=== PATIENT | male | born 1970 ===

== ENCOUNTER 2018-10-17 12:15 | Inpatient (IN) | payer MEDICAID ==
[2018-10-17] MEDS ORDERED: Sodium Chloride 0.9% 1,000 ML IV ONE (13:18)
--- NOTE | 2018-10-17 13:33 | C.PDOC ---
History Of Present Illness 48 y/o male, with no known PMHx, presents to the ED complaining of decreased appetite, chest pain, weakness, fever, weight loss, and abdominal pain for the past month. Chest pain is described as sharp. abdominal pain is sharp but waxes and wanes in intensity, and worsens after eating. Otherwise patient denies any vomiting, diarrhea, dysuria, hematuria, back pain, headache, or dizziness. Time Seen by Provider: 10/17/18 13:10 Chief Complaint (Nursing): Chest Pain History Per: Patient History/Exam Limitations: no limitations Onset/Duration Of Symptoms: Days Current Symptoms Are (Timing): Still Present Quality: Sharp Past Medical History Reviewed: Historical Data, Nursing Documentation, Vital Signs Vital Signs: Last Vital Signs Temp 100.9 F H 10/17/18 12:19 Pulse 120 H 10/17/18 12:19 Resp 18 10/17/18 12:19 BP 101/66 10/17/18 12:19 Pulse Ox 95 10/17/18 12:19 - Medical History PMH: No Chronic Diseases Family History: States: No Known Family Hx - Social History Hx Tobacco Use: Yes Hx Alcohol Use: Yes Hx Substance Use: No - Immunization History Hx Tetanus Toxoid Vaccination: No Hx Influenza Vaccination: No Hx Pneumococcal Vaccination: No Review Of Systems Except As Marked, All Systems Reviewed And Found Negative. Constitutional: Positive for: Fever, Weakness, Weight loss Eyes: Negative for: Vision Change Cardiovascular: Positive for: Chest Pain. Negative for: Palpitations Respiratory: Negative for: Cough, Shortness of Breath, Wheezing Gastrointestinal: Positive for: Abdominal Pain, Other (Decreased appetite). Negative for: Vomiting, Diarrhea Genitourinary: Negative for: Dysuria, Hematuria Musculoskeletal: Negative for: Back Pain Neurological: Negative for: Weakness (focal), Numbness Physical Exam - Physical Exam Appears: Non-toxic, No Acute Distress Skin: Normal Color, Warm, Dry Head: Atraumatic, Normacephalic Eye(s): bilateral: Normal Inspection, PERRL, EOMI Oral Mucosa: Moist Neck: Normal ROM Chest: Symmetrical Cardiovascular: Rhythm Regular, No Murmur Respiratory: No Accessory Muscle Use, Rhonchi (at the right base), No Wheezing, Other (No respiratory distress) Gastrointestinal/Abdominal: Soft, Tenderness (diffuse abdominal tenderness), No Guarding, No Rebound Back: No CVA Tenderness, No Vertebral Tenderness Extremity: Bilateral: Atraumatic, Normal Color And Temperature Pulses: Left Dorsalis Pedis: Normal, Right Dorsalis Pedis: Normal Neurological/Psych: Oriented x3, Normal Speech ED Course And Treatment - Laboratory Results Result Diagrams: 10/17/18 13:37 10/17/18 13:37 ECG: Interpreted By Me, Viewed By Me ECG Rhythm: Sinus Rhythm Interpretation Of ECG: normal intervals, normal axis, no ST/T wave abnormalities Rate From EC O2 Sat by Pulse Oximetry: 95 (RA) Pulse Ox Interpretation: Normal - Other Rad CXR X-Ray: Read By Radiologist Interpretation: Accession No. : [id number]. Patient Name / ID : BHAVYA PATEL / [id number]. Exam Date : 10/17/2018 13:33:15 ( Approved ). Study Comment : Sex / Age : M / 48Y. Creator : Stephen Griffin MD. Dictator : Stephen Griffin MD. Icu Staff Nurse : Legal Process Specialist : Stephen Griffin MD. Approver2 : Report Date : 10/17/2018 14:50:13. My Comment : . Date of service: 10/17/2018. HISTORY: SOB. COMPARISON: No prior. TECHNIQUE: Chest PA and lateral. FINDINGS: LUNGS: No active pulmonary disease. PLEURA: No significant pleural effusion identified. No pneumothorax apparent. CARD IOVASCULAR: No aortic atherosclerotic calcification present. Normal cardiac size. No pulmonary vascular congestion. OSSEOUS STRUCTURES: No significant abnormalities. VISUALIZED UPPER ABDOMEN: Normal. OTHER FINDINGS: None. IMPRESSION: No active disease. - CT Scan/US CT Abd/Pelvis Other Rad Studies (CT/US): Read By Radiologist, Radiology Report Reviewed CT/US Interpretation: Accession No. : [id number]. Patient Name / ID : BHAVYA PATEL / [id number]. Exam Date : 10/17/2018 16:04:36 ( Approved ). Study Comment : Sex / Age : M / 48Y. Creator : Kati Capps. Dictator : Stephen Griffin MD. Icu Staff Nurse : Legal Process Specialist : Stephen Griffin MD. Approver2 : Report Date : 10/17/2018 16:19:33. My Comment : . Date of service: 10/17/2018. PROCEDURE: CT Abdomen and Pelvis with contrast. HISTORY: abd. pain. COMPARISON: None. TECHNIQUE: Contrast dose: 100 cc of Visipaque. Radiation dose: Total exam DLP = 290.62 mGy-cm. This CT exam was performed using one or more of the following dose reduction techniques: Automated exposure control, adjustment of the mA and/or kV according to patient size, and/or use of iterative reconstruction technique. FINDINGS: LOWER THORAX: Unremarkable. LIVER: Unremarkable. No gross lesion or ductal dilatation. There is a 19 mm hypodense lesion in the right lobe of the liver. This measures 54 Hounsfield units in density. Follow-up is recommended. GALLBLADDER AND BILE DUCTS: Unremarkable. PANCREAS: Unremarkable. No gross lesion or ductal dilatation. SPLEEN: Unremarkable. ADRENALS: Unremarkable. No mass. KIDNEYS AND URETERS: Unremarkable. No hydronephrosis. No solid mass. VASCULATURE: Unremarkable. No aortic aneurysm. No aortic atherosclerotic calcification or mural plaque present. BOWEL: Unremarkable. No obstruction. No gross mural thickening. APPENDIX: Normal appendix. PERITONEUM: Unremarkable. No free fluid. No free air. LYMPH NODES: Unremarkable. No enlarged lymph nodes. BLADDER: Unremarkable. REPRODUCTIVE: Unremarkable. BONES: No acute fracture. OTHER FINDINGS: None. IMPRESSION: There is a 19 mm hypodense lesion in the right lobe of the liver. This measures 54 Hounsfield units in density. Follow-up is recommended. No acute intra abdominal findings Medical Decision Making Medical Decision Making: Impression: Chest/Abdominal Pain, Weakness, Fever Plan: --EKG --VBG --Labs --Blood and urine cultures --Chest x-ray --IVF hydration --Tylenol 650 mg PO --Awaiting CT Abd/Pelvis with IV contrast 1724- case discussed with hospitalist and will admit to telemetry Disposition Discussed With DrAbdirizak: Alex Gutierrez Doctor Will See Patient In The: Hospital Counseled Patient/Family Regarding: Studies Performed, Diagnosis - Disposition Disposition: HOSPITALIZED Disposition Time: 17:23 Condition: FAIR Forms: [employer] (Yi) - Clinical Impression Clinical Impression: Hyperkalemia, Fever, Abdominal pain - Scribe Statement The provider has reviewed the documentation as recorded by the Hugo Sosa Provider Attestation: All medical record entries made by the Hugo were at my direction and personally dictated by me. I have reviewed the chart and agree that the record accurately reflects my personal performance of the history, physical exam, me dical decision making, and the department course for this patient. I have also personally directed, reviewed, and agree with the discharge instructions and disposition.
[2018-10-17] MEDS ORDERED: Sodium Chloride 0.9% 1,000 ML ONE ×2 (13:41→18:48)
[2018-10-17 13:52] LABS: BASO % 0.1 % (0.0-2.0); BLOOD UREA NITROGEN 18 mg/dL (9-20); EOS # 0.1 K/uL (0.0-0.7); EOS % 0.6 % (0.0-4.0); GFR NON-AFRICAN AMERICAN > 60; HEMOGLOBIN 14.4 g/dL (12.0-18.0); LIPASE 160 U/L (23-300); LYMPH % 17.1 % (20.0-40.0); MEAN CELL VOLUME 81.9 fL (80.0-94.0); MEAN CORPUSCULAR HEMOGLOBIN 27.1 pg (27.0-31.0); MEAN CORPUSCULAR HGB CONC 33.1 g/dL (33.0-37.0); MONO # 1.1 K/uL (0.0-0.8); MONO % 9.9 % (0.0-10.0); NEUT # 8.4 K/uL (1.8-7.0); NEUT % 72.3 % (50.0-75.0); RBC 5.33 Mil/uL (4.40-5.90); RED CELL DISTRIBUTION WIDTH 13.2 % (11.5-14.5); WHITE BLOOD COUNT 11.6 K/uL (4.8-10.8)
[2018-10-17 13:54] LABS: ALB/GLOB RATIO 1.1 (1.0-2.1); ALBUMIN 4.4 g/dL (3.5-5.0); ALT/SGPT 21 U/L (21-72); AST/SGOT 52 U/L (17-59)
[2018-10-17 14:01] LABS: INR 1.3
[2018-10-17 14:08] LABS: VENOUS BLOOD GAS BASE EXCESS -1.5 mmol/L (0.0-2.0); VENOUS BLOOD GAS PCO2 29 mmHg (40-60); VENOUS BLOOD GAS PO2 63 mm/Hg (30-55); VENOUS BLOOD PH 7.47 (7.32-7.43)
[2018-10-17] MEDS ORDERED: Dextrose 50% SYRINGE Inj (50 ml) IV STA (14:42)
[2018-10-17] MEDS ORDERED: Calcium Gluconate 4.65 mEq/10 ml Inj IVP ONE (14:43)
[2018-10-17] MEDS ORDERED: (Novolin R) Insulin Human Regular 100 units/ml vial IV ONE (14:43)
[2018-10-17] MEDS ORDERED: Calcium Gluconate 4.65 mEq/10 ml Inj ONE (14:52)
[2018-10-17] MEDS ORDERED: Dextrose 50% SYRINGE Inj (50 ml) ONE (14:52)
[2018-10-17] MEDS ORDERED: (Novolin R) Insulin Human Regular 100 units/ml vial ONE (14:52)
--- NOTE | 2018-10-17 14:54 | RAD ---
Date of service: 10/17/2018 HISTORY: SOB COMPARISON: No prior. TECHNIQUE: Chest PA and lateral FINDINGS: LUNGS: No active pulmonary disease. PLEURA: No significant pleural effusion identified. No pneumothorax apparent. CARDIOVASCULAR: No aortic atherosclerotic calcification present. Normal cardiac size. No pulmonary vascular congestion. OSSEOUS STRUCTURES: No significant abnormalities. VISUALIZED UPPER ABDOMEN: Normal. OTHER FINDINGS: None. IMPRESSION: No active disease.
[2018-10-17] MEDS ORDERED: Iodixanol 320 MG/ML 100 ML BOTTLE IV ONE (15:07)
--- NOTE | 2018-10-17 16:42 | CT ---
Date of service: 10/17/2018 PROCEDURE: CT Abdomen and Pelvis with contrast HISTORY: abd. pain COMPARISON: None. TECHNIQUE: Contrast dose: 100 cc of Visipaque Radiation dose: Total exam DLP = 290.62 mGy-cm. This CT exam was performed using one or more of the following dose reduction techniques: Automated exposure control, adjustment of the mA and/or kV according to patient size, and/or use of iterative reconstruction technique. FINDINGS: LOWER THORAX: Unremarkable. LIVER: Unremarkable. No gross lesion or ductal dilatation. There is a 19 mm hypodense lesion in the right lobe of the liver. This measures 54 Hounsfield units in density. Follow-up is recommended. GALLBLADDER AND BILE DUCTS: Unremarkable. PANCREAS: Unremarkable. No gross lesion or ductal dilatation. SPLEEN: Unremarkable. ADRENALS: Unremarkable. No mass. KIDNEYS AND URETERS: Unremarkable. No hydronephrosis. No solid mass. VASCULATURE: Unremarkable. No aortic aneurysm. No aortic atherosclerotic calcification or mural plaque present. BOWEL: Unremarkable. No obstruction. No gross mural thickening. APPENDIX: Normal appendix. PERITONEUM: Unremarkable. No free fluid. No free air. LYMPH NODES: Unremarkable. No enlarged lymph nodes. BLADDER: Unremarkable. REPRODUCTIVE: Unremarkable. BONES: No acute fracture. OTHER FINDINGS: None. IMPRESSION: There is a 19 mm hypodense lesion in the right lobe of the liver. This measures 54 Hounsfield units in density. Follow-up is recommended. No acute intra abdominal findings
[2018-10-17] MEDS ORDERED: Sod Polystyrene Sulf 15 gm/60 ml Susp PO ONE (18:37)
--- NOTE | 2018-10-17 18:47 | CP.PCM.HP ---
History of Present Illness - History of Present Illness History of Present Illness: H&P note for Dr Martin service cc: right side chest pain HPI: Patient is a 48 year old male with past medical hx of anxiety and schizophrenia that comes to ED for right sided chest pain that started 1 month ago. Patient describes the pain has been getting worst throughout the days, and he has been to [facility] about 3 times for this complaint, and was told there was no cause for his pain. Patient chest pain is characterized as sharp, associated when patient is walking, along with numbness and weakness of arms and legs. Patient admits to difficulty breathing at the same time, feeling the need to take forced breaths, along with productive cough with black sputum, but denies blood in the sputum. Patient admits to chills, but describes it more as tremors he experiences in both his upper extremities and later on admits to abdominal pain after being palpated on left lower quadrant. . Admits to loss of appetite. Denies fever, headaches, falls, loss of consciousness, blurry vision n/v/d/c, urinary symptoms, abnormal bleeding. Patient admits to losing weight but does not how much he did, but indicates to be a significant amount. PMD: none ALL: NKDA Pmhx: anxiety, schizophrenia shx: denies fmhx: schizophrenia ( mother) sochx: tobacco 1/2 pack a day for 30 years, social alcohol use ( 2-4 beers a week), denies illicit drug use MEDS: ocasionally tylenol, no other medications taken on regular basis Present on Admission - Present on Admission Any Indicators Present on Admission: No Review of Systems - Review of Systems All systems: reviewed and no additional remarkable complaints except Review of Systems: as stated in HPI Past Patient History - Past Social History Smoking Status: Current Some Days Smoker - PSYCHIATRIC Hx Substance Use: No Meds Allergies/Adverse Reactions: Allergies Allergy/AdvReac Type Severity Reaction Status Date / Time No Known Allergies Allergy Verified 10/17/18 12:22 Physical Exam - Constitutional Appears: Non-toxic, No Acute Distress - Head Exam Head Exam: ATRAUMATIC, NORMAL INSPECTION, NORMOCEPHALIC - Eye Exam Eye Exam: EOMI, Normal appearance, PERRL Pupil Exam: Mydriatic - ENT Exam ENT Exam: Mucous Membranes Moist, Normal Exam - Neck Exam Neck exam: Positive for: Normal Inspection. Negative for: Lymphadenopathy, Tenderness, Thyromegaly - Respiratory Exam Respiratory Exam: Clear to Auscultation Bilateral, NORMAL BREATHING PATTERN. absent: Rales, Rhonchi, Wheezes - Cardiovascular Exam Cardiovascular Exam: Tachycardia, REGULAR RHYTHM, +S1, +S2 - GI/Abdominal Exam GI & Abdominal Exam: Normal Bowel Sounds, Soft, Tenderness (diffuse tenderness, mostly noted on LLQ area) - Extremities Exam Extremities exam: Positive for: full ROM, normal inspection, pedal pulses present. Negative for: calf tenderness, pedal edema - Back Exam Back exam: FULL ROM, NORMAL INSPECTION. absent: CVA tenderness (L), CVA tenderness (R), paraspinal tenderness, rash noted, tenderness, vertebral tende rness - Neurological Exam Neurological exam: Alert, CN II-XII Intact, Oriented x3 - Psychiatric Exam Psychiatric exam: Normal Affect, Normal Mood - Skin Skin Exam: Dry, Intact, Normal Color, Warm Results - Vital Signs Recent Vital Signs: Last Vital Signs Temp 100.9 F H 10/17/18 12:19 Pulse 120 H 10/17/18 12:19 Resp 18 10/17/18 12:19 BP 101/66 10/17/18 12:19 Pulse Ox 95 10/17/18 17:24 - Labs Result Diagrams: 10/17/18 13:37 10/17/18 13:37 Labs: Laboratory Results - last 24 hr 10/17/18 10/17/18 10/17/18 13:37 13:37 13:37 WBC 11.6 H RBC 5.33 Hgb 14.4 Hct 43.6 MCV 81.9 MCH 27.1 MCHC 33.1 RDW 13.2 Plt Count 392 MPV 8.0 Neut % (Auto) 72.3 Lymph % (Auto) 17.1 L [place] % (Auto) 9.9 Eos % (Auto) 0.6 Baso % (Auto) 0.1 Neut # (Auto) 8.4 H Lymph # (Auto) 2.0 [place] # (Auto) 1.1 H Eos # (Auto) 0.1 Baso # (Auto) 0.0 PT 14.0 H INR 1.3 APTT 32 pO2 VBG pH VBG pCO2 VBG HCO3 VBG Total CO2 VBG O2 Sat (Calc) VBG Base Excess VBG Potassium Glucose Lactate Sodium 133 Potassium 6.1 H Chloride 100 Carbon Dioxide 21 L Anion Gap 18 BUN 18 Creatinine 0.9 Est GFR ( Amer) > 60 Est GFR (Non-Af Amer) > 60 Random Glucose 106 Calcium 9.0 Magnesium 1.9 Total Bilirubin 2.0 H AST 52 ALT 21 Alkaline Phosphatase 60 Troponin I 0.0230 Total Protein 8.4 H Albumin 4.4 Globulin 3.9 Albumin/Globulin Ratio 1.1 Lipase 160 TSH 3rd Generation 1.94 Venous Blood Potassium Alcohol, Quantitative < 10 10/17/18 14:05 WBC RBC Hgb Hct MCV MCH MCHC RDW Plt Count MPV Neut % (Auto) Lymph % (Auto) [place] % (Auto) Eos % (Auto) Baso % (Auto) Neut # (Auto) Lymph # (Auto) [place] # (Auto) Eos # (Auto) Baso # (Auto) PT INR APTT pO2 63 H VBG pH 7.47 H VBG pCO2 29 L VBG HCO3 23.6 VBG Total CO2 22.0 VBG O2 Sat (Calc) 95.1 H VBG Base Excess -1.5 L VBG Potassium 4.0 Glucose 96 Lactate 1.1 Sodium 138.0 Potassium Chloride 110.0 H Carbon Dioxide Anion Gap BUN Creatinine Est GFR ( Amer) Est GFR (Non-Af Amer) Random Glucose Calcium Magnesium Total Bilirubin AST ALT Alkaline Phosphatase Troponin I Total Protein Albumin Globulin Albumin/Globulin Ratio Lipase TSH 3rd Generation Venous Blood Potassium 4.0 Alcohol, Quantitative Assessment & Plan - Assessment and Plan (Free Text) Plan: RT sided Chest pain R/O CT vs PNA vs Malignacy vs PE - complaining of cough with dark sputum - T: 100.9, HR:120 Sat 95% RA - WBC: 11.6 - Chest Xray - no active disease - Blood Cx x2 - f/u - sputum cx x 2 - f/u - Urine cx x 2 - f/u - CT chest with IV contrast tomorrow- f/u - Meds: Ceftriaxone 1gm IVPB Daily Azithromycin 500mg IVPB Daily - CPK, procalcitonin Hyperkalemia - On admission: K -6.1 - EKG: sinus rhythm, normal intervals, normal axis, no ST/T wave abnormalities - repeat CMP - insulin 10 Units, calcium gluconate given in ED - Kayexealate PO x 1 dose - Lasix 20 mg IVP x 1 dose - repeat labs in the am Upper extremity rigors, r/o seizure activity - CT head w/o contrast - f/u - Alcohol LLQ Abdominal pain - possible muscular pain from cough exertion - CT abd and pelvis with IV contrast - There is a 19 mm hypodense lesion in the right lobe of the liver. This measures 54 Hounsfield units in density. Follow- up is recommended. No acute intra abdominal findings - Ibuprofen x1 dose - Ibuprofen PRN for abd pain Prophylaxis - DVT: SCDs, lovenox 40mg SC Qdaily - Diet: Heart healthy diet - IV fluids: NS @ 125cc/hr Plan discussed with attending Dr Mario Joseph, PGY-1 - Date & Time Date: 10/17/18 Time: 17:00
[2018-10-17] MEDS ORDERED: Sod Polystyrene Sulf 15 gm/60 ml Susp ONE (18:48)
[2018-10-17] MEDS: Sodium Chloride 0.9% 1,000 ML IV SCH (18:59)
[2018-10-17] MEDS ORDERED: Iohexol 350mg/ml 100 ML ONE (19:00)
[2018-10-17 19:20] LABS: SQUAMOUS EPITHIAL 5 /hpf (0-5); URINE BACTERIA RARE (<OCC); URINE BILIRUBIN 2+ (NEGATIVE); URINE BLOOD NEGATIVE (NEGATIVE); URINE CLARITY Clear (Clear); URINE COLOR YELLOW (YELLOW); URINE GLUCOSE (UA) 1+ mg/dL (Normal); URINE LEUKOCYTE ESTERASE NEG Leu/uL (Negative); URINE PROTEIN 2+ mg/dL (NEGATIVE)
[2018-10-17 19:32] LABS: BASO % 0.1 % (0.0-2.0); EOS % 0.4 % (0.0-4.0); HEMOGLOBIN 13.1 g/dL (12.0-18.0); LYMPH # 1.7 K/uL (1.0-4.3); LYMPH % 16.1 % (20.0-40.0); MEAN CELL VOLUME 81.9 fL (80.0-94.0); MEAN CORPUSCULAR HEMOGLOBIN 27.7 pg (27.0-31.0); MEAN CORPUSCULAR HGB CONC 33.8 g/dL (33.0-37.0); MEAN PLATELET VOLUME 7.3 fL (7.2-11.7); MONO # 1.2 K/uL (0.0-0.8); MONO % 11.1 % (0.0-10.0); NEUT # 7.7 K/uL (1.8-7.0); NEUT % 72.3 % (50.0-75.0); RBC 4.75 Mil/uL (4.40-5.90); RED CELL DISTRIBUTION WIDTH 13.3 % (11.5-14.5); WHITE BLOOD COUNT 10.7 K/uL (4.8-10.8)
[2018-10-17 20:04] LABS: ALB/GLOB RATIO 1.1 (1.0-2.1); ALBUMIN 3.4 g/dL (3.5-5.0); ALT/SGPT 54 U/L (21-72); AST/SGOT 42 U/L (17-59); BLOOD UREA NITROGEN 16 mg/dL (9-20); CALCIUM 8.9 mg/dl (8.6-10.4); GFR NON-AFRICAN AMERICAN > 60
[2018-10-17 20:07] LABS: BARBITURATES, UR NEGATIVE (NEGATIVE); BENZODIAZEPINES, UR NEGATIVE (NEGATIVE); OPIATES, UR NEGATIVE (NEGATIVE); PHENCYCLIDINE, UR NEGATIVE (NEGATIVE)
--- NOTE | 2018-10-17 21:24 | CT ---
Date of service: 10/17/2018 PROCEDURE: CT HEAD WITHOUT CONTRAST. HISTORY: r/o seizures COMPARISON: None available. TECHNIQUE: Axial computed tomography images were obtained through the head/brain without intravenous contrast. Radiation dose: Total exam DLP = 1036.43 mGy-cm. This CT exam was performed using one or more of the following dose reduction techniques: Automated exposure control, adjustment of the mA and/or kV according to patient size, and/or use of iterative reconstruction technique. FINDINGS: HEMORRHAGE: No intracranial hemorrhage. BRAIN: No mass effect or edema. No atrophy or chronic microvascular ischemic changes. VENTRICLES: Unremarkable. No hydrocephalus. CALVARIUM: Unremarkable. PARANASAL SINUSES: Mild mucosal changes are seen in the sinuses with probable small mucous retention cyst in the inferior right maxillary sinus. MASTOID AIR CELLS: Unremarkable as visualized. No inflammatory changes. OTHER FINDINGS: None. IMPRESSION: Normal CT of the Head. This agrees with preliminary report provided by the on-call radiologist.
[2018-10-18 07:33] VITALS: RESP 20
--- NOTE | 2018-10-18 07:34 | CP.PCM.PN ---
Subjective - Date & Time of Evaluation Date of Evaluation: 10/18/18 Time of Evaluation: 07:30 - Subjective Subjective: PGY-1 Medicine Progress Note for Dr. Martin Patient was seen and examined today at bedside in no acute distress. Patient reports improvement of overall malaise, but is still feeling generalized arthralgia. He states he has urinated multiple times since coming to the ED with episodes of incontinence, unable to make it to the restroom in time and refusing to use his urinal. He also states that after a month without BM, he had a large episode of watery diarrhea overnight. This was not endorsed to the nurse, who reports no overnight events. States he is still weak and has tremors bilaterally, UE>LE. He has numbness of his feet and tingling in his fingertips bilaterally. He is still denying appetite and is not eating, leading to the empty feeling in his abdomen Denies chest pain, shortness of breath, headache, overnight fever, nausea, vomiting, trouble sleeping. Objective - Vital Signs/Intake and Output Vital Signs (last 24 hours): Temp Pulse Resp BP Pulse Ox 98.5 F 96 H 18 123/82 97 10/17/18 23:57 10/18/18 01:00 10/17/18 23:57 10/17/18 23:57 10/17/18 23:57 Intake and Output: 10/18/18 10/18/18 06:59 18:59 Intake Total 1240 Balance 1240 - Medications Medications: Current Medications Acetaminophen (Tylenol 325mg Tab) 650 mg PO Q6 PRN PRN Reason: Pain, moderate (4-7) Enoxaparin Sodium (Lovenox) 40 mg SC DAILY LOLLY Sodium Chloride (Sodium Chloride 0.9%) 1,000 mls @ 125 mls/hr IV .Q8H LOLLY Last Admin: 10/17/18 18:59 Dose: 125 mls/hr Azithromycin 500 mg/ Sodium (Chloride) 250 mls @ 250 mls/hr IVPB DAILY LOLLY; Protocol Ceftriaxone Sodium 1 gm/ (Sodium Chloride) 100 mls @ 100 mls/hr IVPB DAILY LOLLY; Protocol Ibuprofen (Motrin Tab) 400 mg PO Q6H PRN PRN Reason: Pain, moderate (4-7) Influenza Virus Vaccine (Fluzone Quad 2722-0143) 60 mcg IM .ONCE ONE Stop: 10/20/18 10:01 Pneumococcal Polyvalent Vaccine (Pneumovax 23 Vaccine) 0.5 ml IM .ONCE ONE Stop: 10/20/18 10:01 - Labs Labs: 10/17/18 19:24 10/17/18 19:35 PT 14.0 SECONDS (9.7-12.2) H 10/17/18 13:37 INR 1.3 10/17/18 13:37 APTT 32 SECONDS (21-34) 10/17/18 13:37 - Constitutional Appears: Well, Non-toxic, No Acute Distress - Head Exam Head Exam: ATRAUMATIC, NORMOCEPHALIC - Eye Exam Eye Exam: EOMI, Normal appearance, PERRL - ENT Exam ENT Exam: Mucous Membranes Moist, Normal Exam - Respiratory Exam Respiratory Exam: Decreased Breath Sounds, Clear to Ausculation Bilateral, NORMAL BREATHING PATTERN. absent: Rales, Rhonchi, Wheezes - Cardiovascular Exam Cardiovascular Exam: REGULAR RHYTHM, +S1, +S2. absent: Gallop, Rubs, Murmur Additional comments: Tele monitoring normal overnight - GI/Abdominal Exam GI & Abdominal Exam: Tenderness (midline tenderness to shallow and deep palpation, worst in suprapubic), Normal Bowel Sounds. absent: Distended, Rigid, Mass, Rebound - Extremities Exam Extremities Exam: Normal Capillary Refill. absent: Tenderness Additional comments: peripheral pulses palpable bilaterally (radial, DP) IV access in R hand - Back Exam Back Exam: absent: CVA tenderness (L), CVA tenderness (R) - Neurological Exam Neurological Exam: Alert, Awake, Oriented x3. absent: Reflexes Normal (hyper- reflexia of bicep and patellar bilaterally) Additional comments: fine and gross motor strength 4/5. Patient begins to tire and starts shaking after <5sec of prolonged muscle usage. - Psychiatric Exam Psychiatric exam: Normal Affect, Normal Mood - Skin Skin Exam: Normal Color, Warm Assessment and Plan - Assessment and Plan (Free Text) Assessment: 48yo M PMH anxiety, schizophrenia admitted for CP r/o ACS vs PNA vs malignancy vs PE and electrolyte imbalance. Plan: Right sided Chest Pain R/O DE vs PNA vs Malignacy vs PE - CXR (10/17): no active disease - CTA (10/18): no PE or other acute findings. Numerous tiny less than 3 mm nodular densities scattered throughout the upper lower lobes many of which are calcified consistent with calcified granulomas and prior exposure to a granulomatous disease process. - ROMIs neg x3 - CK 52, Procal <0.05 - Ceftriaxone 1gm IVPB x1 - Blood Cx (10/17): collected - Urine Cx (10/17): collected - Sputum Cx (10/18): collected - Azithromycin 500mg IVPB daily (started 10/18) Hyperkalemia - resolved - K 6.1 on admission - given calcium gluconate, insulin, dextrose, NS bolus in ED - EKG on admission: sinus rhythm, normal intervals, normal axis, no ST/T wave abnormalities - Kayexalate and Lasix given once - repeat CMP: K 3.5 - K today: 3.8 - trend with AM labs Upper extermity rigors, r/o seizure activity - CT Head without (10/17): normal CT of the Head. No mass effect or edema - BAL <10 - UDS positive for Cannabinoids Abdominal Pain - localized to LLQ yesterday, suprapubic today - CT A/P with IV only (10/17): No acute intra abdominal findings. There is a 19 mm hypodense lesion in the right lobe of the liver. This measures 54 Hounsfield units in density. - Ibuprofen 400mg po q6 prn for pain Prophylaxis - DVT: Lovenox 40mg SC daily, SCDS (patient currently not using d/t frequently going to restroom) - GI: not indicated - Diet: HHD - IVF: NS@125 - Tylenol 650mg po q6 prn for fever d/w Dr. Mario Dubon PGY-1
[2018-10-18 08:02] LABS: EOS # 0.1 K/uL (0.0-0.7); EOS % 0.9 % (0.0-4.0); HEMOGLOBIN 12.7 g/dL (12.0-18.0); LYMPH # 1.6 K/uL (1.0-4.3); LYMPH % 18.7 % (20.0-40.0); MEAN CELL VOLUME 82.2 fL (80.0-94.0); MEAN CORPUSCULAR HEMOGLOBIN 27.9 pg (27.0-31.0); MEAN PLATELET VOLUME 7.5 fL (7.2-11.7); MONO # 0.8 K/uL (0.0-0.8); MONO % 9.6 % (0.0-10.0); NEUT # 5.9 K/uL (1.8-7.0); NEUT % 70.8 % (50.0-75.0); RBC 4.53 Mil/uL (4.40-5.90); RED CELL DISTRIBUTION WIDTH 13.2 % (11.5-14.5); WHITE BLOOD COUNT 8.4 K/uL (4.8-10.8)
[2018-10-18 08:23] LABS: ALT/SGPT 56 U/L (21-72); AST/SGOT 30 U/L (17-59); BLOOD UREA NITROGEN 13 mg/dL (9-20); CALCIUM 8.3 mg/dl (8.6-10.4); GFR NON-AFRICAN AMERICAN > 60
[2018-10-18] MEDS: Enoxaparin 40 mg Syringe SC SCH (09:30)
[2018-10-18] MEDS: Sodium Chloride 0.9% 1,000 ML IV SCH ×2 (10:45→19:43)
[2018-10-18] MEDS: Azithromycin 500 MG in Sodium Chloride 0.9% 250 ML IVPB SCH (10:50)
[2018-10-18] MEDS ORDERED: Iodixanol 320 MG/ML 100 ML BOTTLE IV ONE (12:25)
--- NOTE | 2018-10-18 14:08 | CT ---
Date of service: 10/18/2018 PROCEDURE: CT Chest with contrast (Pulmonary Angiogram) HISTORY: r/o malignancy vs PNA vs PE COMPARISON: No prior study available for comparison. TECHNIQUE: Axial computed tomography images were obtained of the chest in the pulmonary arterial phase of enhancement. Coronal and sagittal reformatted images were created and reviewed. Intravenous contrast dose: 100cc Visipaque Radiation dose: Total exam DLP = 355.76 mGy-cm. This CT exam was performed using one or more of the following dose reduction techniques: Automated exposure control, adjustment of the mA and/or kV according to patient size, and/or use of iterative reconstruction technique. FINDINGS: PULMONARY ARTERIES: The visualized pulmonary trunk, right and left main, lobar segmental and proximal subsegmental branches of the pulmonary arteries are well opacified with no definitive filling defects seen to suggest acute central pulmonary. Pulmonary trunk measures approximately 2.15 cm. AORTA: No acute findings. No thoracic aortic aneurysm. Ascending thoracic aorta measures approximately 3.6 cm. Descending thoracic aorta measures approximately 2.7 cm. Minimal aortic atherosclerotic calcification or mural plaque present. LUNGS: There are numerous less than 3 mm the nodular densities scattered throughout the upper and lower lobes bilaterally many of which are calcified consistent with calcified granulomas and prior exposure to a granulomatous disease process. PLEURAL SPACES: Unremarkable. No effusion or pneumothorax. HEART: Heart size is within range of normal. No significant pericardial effusion. LYMPH NODES: No significant mediastinal or hilar adenopathy. Trachea midline and patent with no large central endoluminal lesions. BONES, CHEST WALL: Unremarkable. No fracture or destructive lesion OTHER FINDINGS: Minor changes of bilateral gynecomastia. . IMPRESSION: Evidence of acute central pulmonary embolus. Numerous of tiny less than 3 mm nodular densities scattered throughout the upper lower lobes many of which are calcified consistent with calcified granulomas and prior exposure to a granulomatous disease process.
--- NOTE | 2018-10-18 20:12 | CARD ---
APPROVED REPORT Date of service: 10/17/2018 EKG Measurement Heart [id number] <Conclusion> Normal sinus rhythm Normal ECG
[2018-10-19] MEDS: Sodium Chloride 0.9% 1,000 ML IV SCH ×3 (03:03→10:45)
[2018-10-19 07:50] VITALS: BP 124/81; TEMP 98.5; O2SAT 96
[2018-10-19 08:09] LABS: BASO % 0.1 % (0.0-2.0); EOS # 0.1 K/uL (0.0-0.7); EOS % 1.9 % (0.0-4.0); HEMOGLOBIN 12.1 g/dL (12.0-18.0); LYMPH # 1.4 K/uL (1.0-4.3); LYMPH % 20.5 % (20.0-40.0); MEAN CELL VOLUME 82.1 fL (80.0-94.0); MEAN CORPUSCULAR HEMOGLOBIN 27.3 pg (27.0-31.0); MEAN CORPUSCULAR HGB CONC 33.3 g/dL (33.0-37.0); MEAN PLATELET VOLUME 7.7 fL (7.2-11.7); MONO # 0.7 K/uL (0.0-0.8); MONO % 10.5 % (0.0-10.0); NEUT # 4.5 K/uL (1.8-7.0); RBC 4.41 Mil/uL (4.40-5.90); RED CELL DISTRIBUTION WIDTH 13.1 % (11.5-14.5); WHITE BLOOD COUNT 6.7 K/uL (4.8-10.8)
[2018-10-19 08:25] LABS: ALBUMIN 2.7 g/dL (3.5-5.0); ALT/SGPT 46 U/L (21-72); AST/SGOT 22 U/L (17-59); BLOOD UREA NITROGEN 10 mg/dL (9-20); GFR NON-AFRICAN AMERICAN > 60
[2018-10-19] MEDS: Azithromycin 500 MG in Sodium Chloride 0.9% 250 ML IVPB SCH (09:32)
[2018-10-19] MEDS: Enoxaparin 40 mg Syringe SC SCH (09:33)
--- NOTE | 2018-10-19 11:12 | CP.PCM.PN ---
Subjective - Date & Time of Evaluation Date of Evaluation: 10/19/18 Time of Evaluation: 10:00 Objective - Vital Signs/Intake and Output Vital Signs (last 24 hours): Temp Pulse Resp BP Pulse Ox 98.5 F 69 20 124/81 96 10/19/18 07:49 10/19/18 07:49 10/19/18 07:49 10/19/18 07:49 10/19/18 07:49 Intake and Output: 10/19/18 10/19/18 06:59 18:59 Intake Total 1999 Balance 1999 - Medications Medications: Current Medications Acetaminophen (Tylenol 325mg Tab) 650 mg PO Q6 PRN PRN Reason: Pain, moderate (4-7) Enoxaparin Sodium (Lovenox) 40 mg SC DAILY [facility] Last Admin: 10/19/18 09:33 Dose: 40 mg Sodium Chloride (Sodium Chloride 0.9%) 1,000 mls @ 125 mls/hr IV .Q8H LOLLY Last Admin: 10/19/18 05:41 Dose: 125 mls/hr Azithromycin 500 mg/ Sodium (Chloride) 250 mls @ 250 mls/hr IVPB DAILY LOLLY; Protocol Last Admin: 10/19/18 09:32 Dose: 250 mls/hr Ibuprofen (Motrin Tab) 400 mg PO Q6H PRN PRN Reason: Pain, moderate (4-7) Last Admin: 10/19/18 03:11 Dose: 400 mg - Labs Labs: 10/19/18 07:52 10/19/18 07:52 PT 14.0 SECONDS (9.7-12.2) H 10/17/18 13:37 INR 1.3 10/17/18 13:37 APTT 32 SECONDS (21-34) 10/17/18 13:37
--- NOTE | 2018-10-19 13:31 | CP.PCM.DIS ---
Provider - Provider Date of Admission: 10/17/18 17:22 Attending physician: Alex Gutierrez MD Time Spent in preparation of Discharge (in minutes): 45 Diagnosis - Discharge Diagnosis (1) Bronchitis Status: Acute (2) Hyperkalemia Status: Acute Hospital Course - Lab Results Lab Results: Micro Results 10/18/18 19:34 Sputum Gram Stain - Final 10/18/18 19:34 Sputum Sputum Culture - Preliminary NORMAL ORAL ELI 10/17/18 19:15 Urine Urine Culture - Final Gram Positive Cocci 10/17/18 14:04 Blood Blood Culture - Preliminary NO GROWTH AFTER 24 HOURS 10/17/18 14:01 Blood Blood Culture - Preliminary NO GROWTH AFTER 24 HOURS Most Recent Lab Values WBC 6.7 K/uL (4.8-10.8) 10/19/18 07:52 RBC 4.41 Mil/uL (4.40-5.90) 10/19/18 07:52 Hgb 12.1 g/dL (12.0-18.0) 10/19/18 07:52 Hct 36.2 % (35.0-51.0) 10/19/18 07:52 MCV 82.1 fL (80.0-94.0) 10/19/18 07:52 MCH 27.3 pg (27.0-31.0) 10/19/18 07:52 MCHC 33.3 g/dL (33.0-37.0) 10/19/18 07:52 RDW 13.1 % (11.5-14.5) 10/19/18 07:52 Plt Count 365 K/uL (130-400) 10/19/18 07:52 MPV 7.7 fL (7.2-11.7) 10/19/18 07:52 Neut % (Auto) 67.0 % (50.0-75.0) 10/19/18 07:52 Lymph % (Auto) 20.5 % (20.0-40.0) 10/19/18 07:52 [place] % (Auto) 10.5 % (0.0-10.0) H 10/19/18 07:52 Eos % (Auto) 1.9 % (0.0-4.0) 10/19/18 07:52 Baso % (Auto) 0.1 % (0.0-2.0) 10/19/18 07:52 Neut # (Auto) 4.5 K/uL (1.8-7.0) 10/19/18 07:52 Lymph # (Auto) 1.4 K/uL (1.0-4.3) 10/19/18 07:52 [place] # (Auto) 0.7 K/uL (0.0-0.8) 10/19/18 07:52 Eos # (Auto) 0.1 K/uL (0.0-0.7) 10/19/18 07:52 Baso # (Auto) 0.0 K/uL (0.0-0.2) 10/19/18 07:52 PT 14.0 SECONDS (9.7-12.2) H 10/17/18 13:37 INR 1.3 10/17/18 13:37 APTT 32 SECONDS (21-34) 10/17/18 13:37 pO2 63 mm/Hg (30-55) H 10/17/18 14:05 VBG pH 7.47 (7.32-7.43) H 10/17/18 14:05 VBG pCO2 29 mmHg (40-60) L 10/17/18 14:05 VBG HCO3 23.6 mmol/L 10/17/18 14:05 VBG Total CO2 22.0 mmol/L (22-28) 10/17/18 14:05 VBG O2 Sat (Calc) 95.1 % (40-65) H 10/17/18 14:05 VBG Base Excess -1.5 mmol/L (0.0-2.0) L 10/17/18 14:05 VBG Potassium 4.0 mmol/L (3.6-5.2) 10/17/18 14:05 Sodium 138.0 mmol/l (132-148) 10/17/18 14:05 Chloride 110.0 mmol/L (98-107) H 10/17/18 14:05 Glucose 96 mg/dl (75-110) 10/17/18 14:05 Lactate 1.1 mmol/L (0.7-2.1) 10/17/18 14:05 Sodium 136 mmol/L (132-148) 10/19/18 07:52 Potassium 3.8 mmol/L (3.6-5.2) 10/19/18 07:52 Chloride 108 mmol/L (98-107) H 10/19/18 07:52 Carbon Dioxide 21 mmol/L (22-30) L 10/19/18 07:52 Anion Gap 11 (10-20) 10/19/18 07:52 BUN 10 mg/dL (9-20) 10/19/18 07:52 Creatinine 0.6 mg/dL (0.8-1.5) L 10/19/18 07:52 Est GFR ( Amer) > 60 10/19/18 07:52 Est GFR (Non-Af Amer) > 60 10/19/18 07:52 POC Glucose (mg/dL) 108 mg/dL (65-110) 10/19/18 11:13 Random Glucose 101 mg/dL (75-110) 10/19/18 07:52 Calcium 8.0 mg/dl (8.6-10.4) L 10/19/18 07:52 Magnesium 1.9 mg/dL (1.6-2.3) 10/17/18 13:37 Total Bilirubin 0.4 mg/dL (0.2-1.3) 10/19/18 07:52 AST 22 U/L (17-59) 10/19/18 07:52 ALT 46 U/L (21-72) 10/19/18 07:52 Alkaline Phosphatase 52 U/L (38-126) 10/19/18 07:52 Total Creatine Kinase 52 U/L (55-170) L 10/17/18 19:35 Troponin I < 0.0120 ng/mL (0.00-0.120) 10/18/18 02:19 Total Protein 5.6 g/dL (6.3-8.3) L 10/19/18 07:52 Albumin 2.7 g/dL (3.5-5.0) L 10/19/18 07:52 Globulin 2.8 gm/dL (2.2-3.9) 10/19/18 07:52 Albumin/Globulin Ratio 1.0 (1.0-2.1) 10/19/18 07:52 Lipase 160 U/L (23-300) 10/17/18 13:37 Procalcitonin < 0.05 NG/ML (0.19-0.49) L 10/17/18 19:35 TSH 3rd Generation 1.94 mIU/L (0.46-4.68) 10/17/18 13:37 Venous Blood Potassium 4.0 mmol/L (3.6-5.2) 10/17/18 14:05 Urine Color Yellow (YELLOW) 10/17/18 19:12 Urine Clarity Clear (Clear) 10/17/18 19:12 Urine pH 5.0 (5.0-8.0) 10/17/18 19:12 Ur Specific [place] 1.031 (1.003-1.030) H 10/17/18 19:12 Urine Protein 2+ mg/dL (NEGATIVE) H 10/17/18 19:12 Urine Glucose (UA) 1+ mg/dL (Normal) H 10/17/18 19:12 Urine Ketones Trace mg/dL (NEGATIVE) 10/17/18 19:12 Urine Blood Negative (NEGATIVE) 10/17/18 19:12 Urine Nitrate Negative (NEGATIVE) 10/17/18 19:12 Urine Bilirubin 2+ (NEGATIVE) H 10/17/18 19:12 Urine Urobilinogen 4.0 mg/dL (0.2-1.0) 10/17/18 19:12 Ur Leukocyte Esterase Neg [place]/uL (Negative) 10/17/18 19:12 Urine WBC (Auto) 6 /hpf (0-5) H 10/17/18 19:12 Urine RBC (Auto) 5 /hpf (0-3) H 10/17/18 19:12 Ur Squamous Epith Cells 5 /hpf (0-5) 10/17/18 19:12 Urine Bacteria Rare (<OCC) 10/17/18 19:12 Hyaline Casts 11-20 /lpf (0-2) H 10/17/18 19:12 Urine Opiates Screen Negative (NEGATIVE) 10/17/18 19:39 Urine Methadone Screen Negative (NEGATIVE) 10/17/18 19:39 Ur Barbiturates Screen Negative (NEGATIVE) 10/17/18 19:39 Ur Phencyclidine Scrn Negative (NEGATIVE) 10/17/18 19:39 Ur Amphetamines Screen Negative (NEGATIVE) 10/17/18 19:39 U Benzodiazepines Scrn Negative (NEGATIVE) 10/17/18 19:39 U Oth Cocaine Metabols Negative (NEGATIVE) 10/17/18 19:39 U Cannabinoids Screen Positive (NEGATIVE) H 10/17/18 19:39 Alcohol, Quantitative < 10 mg/dl (0-10) 10/17/18 13:37 - Hospital Course Hospital Course: Patient is a 48 year old male with past medical hx of anxiety and schizophrenia that comes to ED for right sided chest pain that started 1 month ago. Patient describes the pain has been getting worst throughout the days, and he has been to [facility] about 3 times for this complaint, and was told there was no cause for his pain. Patient chest pain is characterized as sharp, associated when patient is walking, along with numbness and weakness of arms and legs. Patient admits to difficulty breathing at the same time, feeling the need to take forced breaths, along with productive cough with black sputum, but denies blood in the sputum. Patient admits to chills, but describes it more as tremors he experiences in both his upper extremities and later on admits to abdominal pain after being palpated on left lower quadrant. . Admits to loss of appetite. Denies fever, headaches, falls, loss of consciousness, blurry vision n/v/d/c, urinary symptoms, abnormal bleeding. Patient admits to losing weight but does not how much he did, but indicates to be a significant amount. EKG showed NSR @ 100. CT A/P showed no acute intra-abdominal findings, however did show a 19mm hypodense lesion in the right lobe of the liver. Due to it's small size, patient will not need scheduled followup, but should be aware of its growth potential if he should continue to smoke and drink. CXR showed no active disease. CT Head showed no mass effect or edema, without atrophy or chronic microvascular ischemic changes. He was started on prophylactic antibiotics until bloodwork returned and imaging read. ROMIs were negative x3, CK and Procal were neg for sepsis. CTA showed no acute PE, however multiple tiny (<3mm) nodular densities scattered throughout. Due to their multiple despite their small size, patient will require a repeat CT in 1 year to monitor. Blood, Urine, and Sputum cultures have all been negative. He was given calcium gluconate, insulin, dextrose, NS bolus in ED, Kayexalate and Lasix were given once on the floor. Since then K has been stable. Patient no longer has chest complaints and has clinically improved. Primary Diagnosis: Bronchitis, Hyperkalemia Patient is clear for discharge per Dr. Montgomery. Patient came in without home medications and is being started on a temporary medication that he should take as prescribed: Mucinex 600mg po bid: take 1 tab by mouth twice a day He's been given a 1 week supply since his cough should resolve in that time. He needs to quit smoking and can use over the counter nicotine patches to help him in that endeavor. He needs to apply for [facility] and follow up in the clinic to check on his chest pain and obtain a referral for the [facility] to resume psychiatric monitoring for his anxiety attacks. Based off of his Chest CT, he will need a repeat in one year to follow up on the small lesions. If the symptoms return or worsen, do not hesitate to return to the ED. This plan was discussed with the patient who understands and agrees. This is a summary of the hospital course. Please refer to the EMR for more detail - Date & Time of H&P Date of H&P: 10/19/18 Time of H&P: 13:30 Discharge Exam - Head Exam Head Exam: ATRAUMATIC, NORMOCEPHALIC - Eye Exam Eye Exam: EOMI, Normal appearance - ENT Exam ENT Exam: Mucous Membranes Moist - Respiratory Exam Respiratory Exam: Decreased Breath Sounds, Clear to PA & Lateral. absent: Rales, Wheezes - Cardiovascular Exam Cardiovascular Exam: REGULAR RHYTHM, +S1, +S2. absent: Gallop, Rubs, Systolic Murmur Additional comments: tele monitoring normal overnight - GI/Abdominal Exam GI & Abdominal Exam: Normal Bowel Sounds, Soft. absent: Distended, Firm, Guarding, Tenderness - Exam Exam: NORMAL INSPECTION. absent: Bladder Distension - Extremities Exam Extremities exam: normal capillary refill Additional comments: peripheral pulses palpable bilaterally (radial, DP, PT) - Back Exam Back exam: absent: CVA tenderness (L), CVA tenderness (R) - Neurological Exam Neurological exam: Alert, CN II-XII Intact, Oriented x3 - Psychiatric Exam Psychiatric exam: Anxious - Skin Skin Exam: Normal Color, Warm Discharge Plan - Discharge Medications Prescriptions: Guaifenesin [Mucinex] 600 mg PO BID #14 tab.er.12h - Follow Up Plan Condition: FAIR Disposition: HOME/ ROUTINE Instructions: Hyperkalemia (DC), Guaifenesin Additional Instructions: Patient is clear for discharge per Dr. Montgomery. Patient came in without home medications and is being started on a temporary medication that he should take as prescribed: Mucinex 600mg po bid: take 1 tab by mouth twice a day He's been given a 1 week supply since his cough should resolve in that time. He needs to quit smoking and can use over the counter nicotine patches to help him in that endeavor. He needs to apply for [facility] and follow up in the clinic to check on his chest pain and obtain a referral for the [facility] to resume psychiatric monitoring for his anxiety attacks. Based off of his Chest CT, he will need a repeat in one year to follow up on the small lesions. If the symptoms return or worsen, do not hesitate to return to the ED. This plan was discussed with the patient who understands and agrees. El paciente est listo para el ike por Dr. Montgomery. El paciente entr sin medicamentos en el hogar y est comenzando a ollie un medicamento temporal que debe ollie segn lo prescrito: Mucinex 600 mg po bid: ollie 1 pestaa por va oral dos veces al da Se le mcknight dado un suministro de 1 semana ya que bains tos debera resolverse en gabby momento. Necesita dejar de fumar y puede usar parches de nicotina de venta heron para ayudarlo en gabby esfuerzo. Necesita solicitar atencin de shirley y realizar un seguimiento en la clnica para controlar el dolor en el pecho y obtener tino derivacin para que el CRC reanude el control psiquitrico de nata ataques de ansiedad. Basado en bains TC de trax, necesitar tino repeticin en un ao para hacer un seguimiento de las pequeas lesiones. Si los sntomas reaparecen o empeoran, no dude en regresar al servicio de urgencias. Venita plan fue discutido con el paciente que entiende y est de acuerdo. Referrals: [facility] [Outside]
[2018-10-19 14:21] VITALS: PULSE 109
[2018-10-20] MEDS ORDERED: Influenza Vaccine 60 MCG/0.5 ML SYR (3 yr & up) IM ONE (10:00)
[2018-10-20] MEDS ORDERED: Pneumococcal 23-Valent Vaccine IM ONE (10:00)
== END 2018-10-19 15:29 | disposition home or self-care (01) | DRG 144 ==
LOC: C.ER 12:15 → C.9E 17:22 → C.5S 18:45
PROVIDERS: ADMIT Internal Medicine; ATTEND Internal Medicine
DX: J40 Bronchitis, not specified as acute or chronic (principal); E87.5 Hyperkalemia; F41.1 Generalized anxiety disorder; R32 Unspecified urinary incontinence; F17.210 Nicotine dependence, cigarettes, uncomplicated